=== PATIENT | male | born 1985 | race Caucasian/White ===

== ENCOUNTER 2017-01-05 11:42 | Emergency (ER) | payer OTHER, SELFPAY ==
[2017-01-05 11:42] VITALS: BMI 24.2
[2017-01-05 11:47] VITALS: BP 125/86; PULSE 70; RESP 18; TEMP 97.9; O2SAT 100
[2017-01-05] MEDS ORDERED: Naproxen 500 MG TAB PO STA (12:21)
[2017-01-05] MEDS ORDERED: Naproxen 500 MG TAB PO ONE (12:29)
--- NOTE | 2017-01-05 12:30 | ED PDOC ---
HPI: Back Time Seen by Provider: 01/05/17 12:05 Chief Complaint (Nursing): Back Pain Chief Complaint (Provider): Back Pain History Per: Patient History/Exam Limitations: no limitations Onset/Duration Of Symptoms: Days (x2) Current Symptoms Are (Timing): Still Present Additional Complaint(s): Feng Montoya is a 31 year old male presenting to the ED for an evaluation of right sided non-radiating back pain occurring for 2 days prior to arrival. The patient states his pain worsened when he lifted a heavy box at work prompting his ED visit today. He describes his pain as a pulling sensation. The patient states he took Ibuprofen for his pain yesterday, with mild relief, but reports the symptoms did return. He states his pain worsens with movement. Of note, the patient is right handed. Tetanus is not up to date. PMD: None Provided Past Medical History Reviewed: Historical Data, Nursing Documentation, Vital Signs Vital Signs: Last Vital Signs Temp 97.9 F 01/05/17 11:43 Pulse 70 01/05/17 11:43 Resp 18 01/05/17 11:43 BP 125/86 01/05/17 11:43 Pulse Ox 100 01/05/17 11:43 - Medical History PMH: No Chronic Diseases Denies: Depression, Chronic Kidney Disease - Family History Family History: States: Unknown Family Hx - Social History Current smoker - smoking cessation education provided: No Ex-Smoker (has not smoked in the last 12 months): No Alcohol: None - Immunization History Hx Tetanus Toxoid Vaccination: No Hx Influenza Vaccination: No Hx Pneumococcal Vaccination: No - Home Medications Home Medications: Ambulatory Orders Medication Instructions Recorded Ibuprofen [Motrin] 600 mg PO QID PRN #25 tab 04/21/16 Ibuprofen [Motrin] 600 mg PO Q6H PRN #20 tab 10/02/16 diaZEpam [Valium] 2 mg PO Q8H PRN #6 tab 10/02/16 traMADol [Ultram] 50 mg PO PRN PRN 10/02/16 Cyclobenzaprine [Cyclobenzaprine 5 mg PO Q8 PRN #15 tab 01/05/17 HCl] Naproxen [Naprosyn] 500 mg PO BID PRN #20 tablet 01/05/17 - Allergies Allergies/Adverse Reactions: Allergies Allergy/AdvReac Type Severity Reaction Status Date / Time codeine Allergy RASH Verified 10/02/16 12:36 gluten AdvReac DIARRHEA Verified 10/02/16 12:36 Review of Systems ROS Statement: Except As Marked, All Systems Reviewed And Found Negative Musculoskeletal: Positive for: Back Pain (right sided back pain, worsening with movement) Physical Exam - Reviewed Nursing Documentation Reviewed: Yes Vital Signs Reviewed: Yes - Physical Exam Appears: Positive for: Non-toxic, No Acute Distress Head Exam: Positive for: ATRAUMATIC, NORMOCEPHALIC Skin: Positive for: Normal Color, Warm, Dry Eye Exam: Positive for: Normal appearance Neck: Positive for: Normal Respiratory: Negative for: Respiratory Distress Back: Positive for: Other (reproducible tenderness to palpation to right rhomboids and medial to scapula) Extremity: Positive for: Normal ROM (full ROM actively and passively to right arm; limited abduction of right arm secondary to pain). Negative for: Other ( negative empty can test and lift off test ) Neurologic/Psych: Positive for: Alert, Oriented. Negative for: Motor/Sensory Deficits - ECG O2 Sat by Pulse Oximetry: 100 (RA) Pulse Ox Interpretation: Normal - Radiology X-Ray: Read By Radiologist X-Ray Interpretation: No Acute Disease - Progress ED Course And Treament: xray of shoulder IMPRESSION: Normal radiographs of the right shoulder. Medical Decision Making Medical Decision Making: Time: 12:05 Impression: Rhomboid muscle train with other conditions considered Plan: * [RAD] Shoulder Right * Flexeril 10 mg PO * Naproxen 500 mg PO * Reevaluation Right Shoulder Xray: FINDINGS: BONES: Normal. No fracture. JOINTS: Normal. Glenohumeral and acromioclavicular joints preserved. No osteoarthritis. SOFT TISSUES: Normal. OTHER FINDINGS: None. IMPRESSION: Normal radiographs of the right shoulder. Scribe Attestation: Documented by Anitha Strickland, acting as a scribe for Audrey Angel, PA-C. Provider Scribe Attestation: All medical record entries made by the Scribe were at my direction and personally dictated by me. I have reviewed the chart and agree that the record accurately reflects my personal performance of the history, physical exam, medical decision making, and the department course for this patient. I have also personally directed, reviewed, and agree with the discharge instructions and disposition. Disposition - Clinical Impression Clinical Impression: Shoulder pain, right, Muscle strain - Patient ED Disposition Is Patient to be Admitted: No - Disposition Referrals: [facility] [Outside] Disposition: Routine/Home Disposition Time: 14:01 Condition: FAIR Additional Instructions: AVOID USING RIGHT SHOULDER AND RIGHT ARM UNTIL FOLLOW UP. AVOID HEAVY LIFTING. Prescriptions: Cyclobenzaprine [Cyclobenzaprine HCl] 5 mg PO Q8 PRN #15 tab PRN Reason: Muscle Spasm Naproxen [Naprosyn] 500 mg PO BID PRN #20 tablet PRN Reason: Pain, Moderate (4-7) Instructions: Muscle Spasm (ED), Back Pain (ED) Forms: [facility] (Romanian), [facility] ED School/Work Excuse
--- NOTE | 2017-01-05 12:50 | RAD ---
PROCEDURE: Radiographs of the Right Shoulder HISTORY: right shoulder pain COMPARISON: No prior. FINDINGS: BONES: Normal. No fracture. JOINTS: Normal. Glenohumeral and acromioclavicular joints preserved. No osteoarthritis. SOFT TISSUES: Normal. OTHER FINDINGS: None. IMPRESSION: Normal radiographs of the right shoulder.
== END 2017-01-05 14:16 | disposition home or self-care (01) ==
LOC: H.ER 11:42
DX: M62.830 Muscle spasm of back (principal); M25.511 Pain in right shoulder